=== PATIENT | male | born 1970 | race Caucasian/White ===

== ENCOUNTER 2024-03-15 20:44 | Emergency (ER) | payer SELFPAY ==
[~2024-03-15] VITALS: Ht 185.4 cm; Wt 91.0 kg
[2024-03-15 21:32] LABS: HEMATOCRIT 33.7 % (42.0-52.0); HEMOGLOBIN 10.5 g/dl (13.5-17.5); MEAN CORPUSCULAR HGB CONC 31.2 g/dl (32.0-36.5); MEAN CORPUSCULAR VOLUME 86.6 fl (80.0-96.0); RED BLOOD COUNT 3.89 10^6/uL (4.30-6.10); WHITE BLOOD COUNT 6.4 10^3/uL (4.0-10.0)
[2024-03-15 21:49] LABS: PLATELET COUNT, AUTOMATED 51 10^3/uL (150-450)
[2024-03-15 21:50] LABS: AMPHETAMINES LEVEL URINE NEGATIVE (NEGATIVE); BARBITURATES URINE NEGATIVE (NEGATIVE); BENZODIAZEPINES URINE NEGATIVE (NEGATIVE); CANNABINOIDS URINE NEGATIVE (NEGATIVE); COCAINE METABOLITE URINE NEGATIVE (NEGATIVE); METHADONE URINE NEGATIVE (NEGATIVE); OPIATES URINE NEGATIVE (NEGATIVE); PHENCYCLIDINE URINE NEGATIVE (NEGATIVE)
[2024-03-15 21:57] LABS: ETHYL ALCOHOL (ETHANOL) 0.287 % (0.000-0.010)
[2024-03-15 21:59] LABS: SALICYLATE LEVEL < 3.0 MG/DL (<30)
[2024-03-15 22:00] LABS: ALBUMIN 2.9 G/DL (3.2-5.2); ALKALINE PHOSPHATASE 144 U/L (40-129); ALT/SGPT 34 U/L (7.0-40); AST/SGOT 47 U/L (<34); BILIRUBIN,DIRECT 1.1 MG/DL (<0.4); BILIRUBIN,TOTAL 2.3 MG/DL (0.3-1.2); BLOOD UREA NITROGEN 6 MG/DL (9-23); CALCIUM LEVEL 7.9 MG/DL (8.5-10.1); CARBON DIOXIDE LEVEL 24 MMOL/L (20-31); CHLORIDE LEVEL 107 MMOL/L (98-107); CREATININE FOR GFR 0.62 MG/DL (0.70-1.30); GLOMERULAR FILTRATION RATE > 60.0 (>56); GLUCOSE, FASTING 125 MG/DL (60-100); POTASSIUM SERUM 3.6 MMOL/L (3.5-5.1); SODIUM LEVEL 141 MMOL/L (136-145); TOTAL PROTEIN 7.5 G/DL (5.7-8.2)
[2024-03-15 22:03] LABS: THYROID STIMULATING HORMONE 1.108 uIU/ML (0.55-4.78)
[2024-03-15 23:24] LABS: HIV 1&2 SCREEN NEGATIVE (NEGATIVE)
[2024-03-15] MEDS ORDERED: HOME MED LIST COMPLETE! XX SCH (23:25)
[2024-03-16] MEDS: NICOTINE 21MG/24HR 1 EA TRANSDERMAL TD ONE (00:47)
[2024-03-16] MEDS: LORazepam 2 MG TAB PO ONE (00:47)
[2024-03-16] MEDS ORDERED: LORazepam 2 MG TAB PO PRN (01:05)
[2024-03-16] MEDS: OMEPRAZOLE 20MG CAP PO ONE (04:16)
[2024-03-16] MEDS: THIAMINE 100 MG TAB PO SCH (09:31)
[2024-03-16] MEDS: FOLIC ACID 1MG TAB PO SCH (09:31)
[2024-03-16] MEDS: MULTIVITAMINS/MINERALS THERAP 1 TAB PO SCH (09:31)
[2024-03-16 13:10] VITALS: BP 148/75; TEMP 98.2; O2SAT 98
== END 2024-03-16 13:15 | disposition home or self-care (01) ==
LOC: M ED 20:44
DX: F10.14 Alcohol abuse with alcohol-induced mood disorder (principal); F17.200 Nicotine dependence, unspecified, uncomplicated; F12.10 Cannabis abuse, uncomplicated

== ENCOUNTER 2024-04-07 21:10 | Emergency (ER) | payer BC, SELFPAY ==
[~2024-04-07] VITALS: Ht 182.9 cm; Wt 90.7 kg
[2024-04-08 03:25] LABS: HEMATOCRIT 29.9 % (42.0-52.0); HEMOGLOBIN 9.6 g/dl (13.5-17.5); MEAN CORPUSCULAR HEMOGLOBIN 27.1 pg (27.0-33.0); MEAN CORPUSCULAR HGB CONC 32.1 g/dl (32.0-36.5); MEAN CORPUSCULAR VOLUME 84.5 fl (80.0-96.0); RED BLOOD COUNT 3.54 10^6/uL (4.30-6.10); WHITE BLOOD COUNT 3.9 10^3/uL (4.0-10.0)
[2024-04-08 03:28] LABS: PLATELET COUNT, AUTOMATED 32 10^3/uL (150-450)
[2024-04-08 03:48] LABS: BLOOD UREA NITROGEN 6 MG/DL (9-23); CARBON DIOXIDE LEVEL 22 MMOL/L (20-31); CHLORIDE LEVEL 113 MMOL/L (98-107); CREATININE FOR GFR 0.67 MG/DL (0.70-1.30); GLOMERULAR FILTRATION RATE > 60.0 (>56); GLUCOSE, FASTING 98 MG/DL (60-100); POTASSIUM SERUM 3.7 MMOL/L (3.5-5.1); SODIUM LEVEL 147 MMOL/L (136-145)
[2024-04-08 04:23] LABS: ALBUMIN 2.7 G/DL (3.2-5.2); ALKALINE PHOSPHATASE 106 U/L (40-129); ALT/SGPT 32 U/L (7.0-40); AST/SGOT 46 U/L (<34); BILIRUBIN,DIRECT 1.2 MG/DL (<0.4); BILIRUBIN,TOTAL 2.6 MG/DL (0.3-1.2); TOTAL PROTEIN 6.9 G/DL (5.7-8.2)
[2024-04-08 04:42] LABS: HEPATITIS B SURFACE ANTIGEN NEGATIVE (NEGATIVE)
[2024-04-08 05:04] LABS: HEPATITIS B CORE ANTIBODY IGM NEGATIVE (NEGATIVE); HEPATITIS C VIRUS ABY INDEX 0.13 INDEX (<0.8)
[2024-04-08 06:00] VITALS: BP 128/68; TEMP 97.8; O2SAT 95
[2024-04-08] MEDS ORDERED: POTA10TA67 PO (06:40)
[2024-04-08] MEDS ORDERED: LASI20TA3 PO (06:40)
== END 2024-04-08 07:14 | disposition home or self-care (01) ==
LOC: EDBD 21:10 → M ED 21:10
DX: R22.43 Localized swelling, mass and lump, lower limb, bilateral (principal); F17.200 Nicotine dependence, unspecified, uncomplicated

== ENCOUNTER → 2024-11-30 | Outpatient (REF) ==
[~2024-11-30] MED LIST: LASI20TA3 PO; POTA10TA67 PO
== END ==
LOC: M PLAIMG 14:28
PROVIDERS: ATTEND Internal Medicine
DX: M51.360 Other intervertebral disc degeneration, lumbar region with discogenic back pain only (principal); M25.78 Osteophyte, vertebrae